=== PATIENT | female | born 1965 | race Caucasian/White ===

== ENCOUNTER 2021-10-27 13:55 | Emergency (ER) | payer OTHER ==
[2021-10-27 14:31] LABS: BILIRUBIN NEGATIVE (NEGATIVE); BLOOD TRACE-INTACT Ery/uL (NEGATIVE); CLARITY CLEAR (CLEAR); COLOR YELLOW (YELLOW); GLUCOSE (U) NORMAL (NORMAL); LEUKOCYTES NEGATIVE Leu/uL (NEGATIVE); NITRITE NEGATIVE (NEGATIVE); PROTEIN NEGATIVE (NEGATIVE); SPECIFIC GRAVITY <=1.005 (1.001-1.030); UROBILINOGEN 0.2 mg/dL (0.2-1.0); pH 6.5 (5.0-9.0)
[2021-10-27 15:55] LABS: BASOPHIL 0.4 % (0-2); EOSINOPHIL 0 % (0-5); LYMPHOCYTE 12.8 % (15-48); MCH 31.7 pg (25.0-31.0); MCHC 33.3 g/dL (32.0-36.0); MCV 95.1 fL (78.0-100.0); MONOCYTE 12.5 % (0-12); MPV 10.2 fL (6.0-9.5); NRBC 0; PLT 243 K/uL (150-400); RBC 4.73 M/uL (4.20-5.40); WBC 7.2 K/uL (4.0-10.5)
[2021-10-27 16:11] LABS: INFLUENZA A NAA NEGATIVE (NEGATIVE)
[2021-10-27 16:13] LABS: BILIRUBIN - TOTAL 0.8 mg/dL (0.2-1.0); BUN/CREAT RATIO (CALC) 14.5 RATIO; CREATININE 0.62 mg/dL (0.51-0.95); GLOBULIN (CALCULATION) 3.4 g/dL; POTASSIUM 3.7 mmol/L (3.5-5.1); TOTAL PROTEIN 7.4 g/dL (6.4-8.2)
[2021-10-27 16:25] LABS: CORONAVIRUS 2019 SARS-COV-2 POSITIVE (NEGATIVE)
== END 2021-10-27 18:15 | disposition home or self-care (01) ==
LOC: FER 13:55
PROVIDERS: Emergency Medicine; Physician Assistant
DX: U07.1 COVID-19 (principal); R10.32 Left lower quadrant pain; Z28.310 Unvaccinated for COVID-19
CPT/HCPCS: 36415; 80053; 81001; 85025; 87088; J1885; J2405; U0002